=== PATIENT | male | born 1975 | race Caucasian/White ===

== ENCOUNTER 2018-01-30 17:17 | Emergency (ER) | payer OTHER ==
[2018-01-30] MEDS ORDERED: HYDROmorphONE/DILAUDID 2 MG/ML INJ IVP ONE (17:20)
[2018-01-30] MEDS ORDERED: NS 1,000 ML IV ONE (17:20)
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
[2018-01-30] MEDS ORDERED: IOPAMIDOL (ISOVUE-300) 100 ML BTL ONE (18:18)
[2018-01-30 18:42] LABS: PLATELET COUNT 220 10^3/uL (150-400)
[2018-01-30 19:23] VITALS: BP 137/91
== END 2018-01-30 19:40 | disposition home or self-care (01) ==
DX: S40.212A Abrasion of left shoulder, initial encounter (principal); E86.9 Volume depletion, unspecified; V89.2XXA Person injured in unspecified motor-vehicle accident, traffic, initial encounter; Y92.410 Unspecified street and highway as the place of occurrence of the external cause
CPT/HCPCS: 96374; J1170; Q9967